=== PATIENT | male | born 1995 | race American Indian/Alaskan Native ===

== ENCOUNTER 2021-07-01 10:03 | Emergency (ER) | payer SELFPAY ==
--- NOTE | 2021-07-01 11:22 | XRay Report ---
LEFT KNEE 3 VIEWS INDICATION: knee pain. [place] knee pop during basketball 2 days ago, swelling COMPARISON: None. IMPRESSION: Normal bone mineralization. No acute osseous abnormality or joint pathology is detected. The soft tissues are unremarkable. No convincing joint effusion. If internal derangement is suspect ed, MRI could be obtained for further evaluation. Signer Name: Nathan White Jr, MD Signed: 07/01/2021 11:18 AM Workstation Name: [id number]
--- NOTE | 2021-07-01 11:48 | Emergency Department Report ---
ED Lower Extremity HPI - General Chief Complaint: Extremity Injury, Lower Stated Complaint: TORN KNEE MUSCLE Time Seen by Provider: 07/01/21 11:19 Source: patient Mode of arrival: Ambulatory Limitations: No Limitations - History of Present Illness Initial Comments: 25-year-old black male with no past medical history presents to the emergency department for evaluation of left knee pain. He states that 3 days ago he was playing basketball and injured his knee. He states that he has been having pain daily since then. He states that pain is 6 out of 10 and worse with ambulation. He states that he has not taken any medication at home for the pain. MD Complaint: knee injury -: Sudden, days(s) (3) Injury: Knee: Left Type of Injury: other (While playing basketball) Place: street/outdoors Severity: moderate Severity scale (0 -10): 6 Worsens With: weight bearing, movement, palpation Associated Symptoms: able to partially bear weight, ambulatory. denies: snap/pop sensation, swelling, numbness, tingling, unable to bear weight - Related Data Previous Rx's Medication Instructions Recorded Last Taken Type Naproxen [Naprosyn] 500 mg PO BID #14 tab 07/01/21 Unknown Rx Allergies Allergy/AdvReac Type Severity Reaction Status Date / Time No Known Allergies Allergy Unverified 07/01/21 10:25 ED Review of Systems ROS: Stated complaint: TORN KNEE MUSCLE Other details as noted in HPI Comment: All other systems reviewed and negative Constitutional: denies: chills, fever Respiratory: denies: cough, shortness of breath, SOB with exertion, SOB at rest Cardiovascular: denies: chest pain, palpitations Gastrointestinal: denies: abdominal pain, nausea, vomiting Genitourinary: denies: urgency, dysuria, frequency, hematuria, discharge Musculoskeletal: denies: back pain Skin: denies: rash, lesions Neurological: denies: headache, weakness ED Past Medical Hx - Past Medical History Previous Medical History?: No - Surgical History Past Surgical History?: No - Medications Home Medications: Home Medications Medication Instructions Recorded Confirmed Last Taken Type Naproxen [Naprosyn] 500 mg PO BID #14 tab 07/01/21 Unknown Rx ED Physical Exam - General Limitations: No Limitations General appearance: alert, in no apparent distress - Head Head exam: Present: atraumatic, normocephalic - Eye Eye exam: Present: normal appearance. Absent: conjunctival injection - Neck Neck exam: Present: normal inspection. Absent: tenderness, lymphadenopathy - Respiratory Respiratory exam: Absent: respiratory distress - Cardiovascular Cardiovascular Exam: Present: regular rate - GI/Abdominal GI/Abdominal exam: Absent: distended - Extremities Exam Extremities exam: Present: normal inspection - Expanded Lower Extremity Exam Left Knee exam: Present: normal inspection, tenderness, full knee extension. Absent: swelling, abrasion, laceration, ecchymosis, deformity, crepidus, dislocation, erythema, effusion Lower Leg exam: Present: normal inspection Ankle exam: Present: normal inspection Foot/Toe exam: Present: normal inspection Neuro vascular tendon exam: Present: no vascular compromise. Absent: pulse deficit, abnormal cap refill, motor deficit, sensory deficit, extremity cold to touch, pallor Gait: Positive: observed and normal - Back Exam Back exam: Present: normal inspection - Neurological Exam Neurological exam: Present: alert, oriented X3 - Psychiatric Psychiatric exam: Present: normal affect, normal mood - Skin Skin exam: Present: warm, dry, intact, normal color ED Course Vital Signs 07/01/21 07/01/21 10:25 12:05 Temperature 98.4 F 98.3 F Pulse Rate 64 88 Respiratory 18 16 Rate Blood Pressure 84/66 96/68 [Right] O2 Sat by Pulse 98 97 Oximetry ED Lower Extremity MDM - Radiology Data Radiology results: report reviewed, image reviewed Left knee x-ray: IMPRESSION: Normal bone mineralization. No acute osseous abnormality or joint pathology is detected. The soft tissues are unremarkable. No convincing joint effusion. If internal derangement is suspected, MRI could be obtained for further evaluation. - Medical Decision Making 25-year-old black male with no past medical history presents to the emergency de partment for evaluation of left knee pain. He states that 3 days ago he was playing basketball and injured his knee. He states that he has been having pain daily since then. He states that pain is 6 out of 10 and worse with ambulation. He states that he has not taken any medication at home for the pain. Left knee x-ray without any acute abnormalities noted Patient will be treated for musculoskeletal pain with 7-day course of naproxen. He was advised to take medication as prescribed and follow-up with orthopedics for more advanced imaging and further evaluation and management if no improvement or worsening symptoms. He verbalized understanding of and agreement with plan of care Critical care attestation.: If time is entered above; I have spent that time in minutes in the direct care of this critically ill patient, excluding procedure time. ED Disposition Clinical Impression: Left knee pain Qualifiers: Chronicity: acute Qualified Code(s): M25.562 - Pain in left knee Disposition: 01 HOME / SELF CARE / HOMELESS Is pt being admited?: No Does the pt Need Aspirin: No Condition: Stable Instructions: How to Use Cold Therapy, [id number], Musculoskeletal Pain, Acute Knee Pain, Adult, [id number] Additional Instructions: Take medication as prescribed. Follow up with orthopedics for further evaluation and management if no improvement or worsening symptoms. Prescriptions: Naproxen [Naprosyn] 500 mg PO BID #14 tab Referrals: NIKHIL PAYNE MD [Staff Physician] - 3-5 Days Forms: Work/School Release Form(ED) Time of Disposition: 11:48
[2021-07-01 12:08] VITALS: BP 96/68
== END 2021-07-01 12:15 | disposition home or self-care (01) ==
LOC: ED 10:03
DX: M25.562 Pain in left knee (principal)
CPT/HCPCS: 99283